=== PATIENT | male | born 1935 | race Asian ===

== ENCOUNTER 2022-09-01 10:00 | Outpatient (CLI) | payer OTHER | END 2022-09-01 19:31 | disposition home or self-care (01) | LOC: CT 10:00 | PROVIDERS: ATTEND Internal Medicine | DX: R47.81 Slurred speech (principal); R20.2 Paresthesia of skin; F01.50 Vascular dementia, unspecified severity, without behavioral disturbance, psychotic disturbance, mood disturbance, and anxiety ==